=== PATIENT | female | born 1995 | race Two or more races ===

== ENCOUNTER 2020-04-10 13:35 | Emergency (ER) | payer SELFPAY ==
--- NOTE | ~2020-04-10 | XR_ITS ---
EXAMINATION: XR chest 2V DATE: 04/10/2020 14:35 INDICATION: Cough and wheezing TECHNIQUE: PA and lateral views of the chest are obtained. COMPARISON: None available FINDINGS: There is minimal airspace opacity of the left lower lobe. There is no pleural effusion or p neumothorax. The cardiomediastinal silhouette is normal. The visualized bones and soft tissues are un remarkable. IMPRESSION: 1. Minimal airspace opacity of the left lower lobe, likely pneumonia. Reviewed, dictated and finalized at location A. [facility]
[2020-04-10 13:57] VITALS: BP 134/75; PULSE 83; RESP 18; TEMP 36.9; O2SAT 97
--- NOTE | 2020-04-10 14:39 | ED.URI ---
HPI - URI/Sore Throat General Chief Complaint: Upper Respiratory Infection Stated Complaint: cough Source: patient and RN notes reviewed Mode of arrival: ambulatory History of Present Illness HPI Narrative: This is a 24-year-old -[place] female who presented today with complaints of chronic coughing and shortness of breath. According to patient she had tested for Covid March 22 which was negative at that time she had fever cough and shortness of breath. According to patient her fever did resolve but she continues to have a nonproductive cough with shortness of breath and wheezing. Patient noted that she did take [id number] Mucinex. She did not take anything else at home. The patient denies CP, palpitation, extremity numbness, lightheadedness, dizziness, constipation, diarrhea, chills, or fever. MD elicited complaint: cough Related Data Allergies Allergy/AdvReac Type Severity Reaction Status Date / Time No Known Allergies Allergy Verified 04/10/20 14:08 Review of Systems Review of Systems: All systems reviewed & are unremarkable except as noted in HPI and below Exam Narrative: Exam Narrative: GENERAL: This is a well-nourished, well-developed patient, in no apparent distress. HEAD: normocephalic, atraumatic. EYES: PERRL. Sclera clear/white. Vision is grossly intact. EARS: External ears normal, auditory canals clear and without drainage, TMs normal without perforation. Hearing grossly intact. NOSE: External nose normal with no obvious nasal discharge, nares without redness, no rhinorrhea. THROAT: Mucous membranes moist, posterior pharynx clear. NECK: Neck supple, non-tender without lymphadenopathy, masses or thyromegaly. CARDIOVASCULAR: Regular rate and rhythm without murmurs, gallops, or rubs. RESPIRATORY: Auditory wheezing GASTROINTESTINAL: Abdomen soft, non-tender, nondistended. Bowel sounds are active. No hepato-splenomegaly, or palpable masses. No guarding. SKIN: warm, intact with no suspicious lesions or rash, good texture and turgor. NEURO: awake, alert, and oriented to person, place and time. There were no obvious focal neurologic abnormalities. Steady gait EXTREMITIES: Normal range of motion. No edema. No calf tenderness. Negative Homans sign bilaterally. BACK: Nontender without deformity or crepitance. No flank tenderness. Course Vital Signs Vital signs: Vital Signs Temperature 98.4 F 04/10/20 13:57 Pulse Rate 83 04/10/20 13:57 Respiratory Rate 18 04/10/20 13:57 Blood Pressure 134/75 04/10/20 13:57 Pulse Oximetry 97 04/10/20 13:57 Temperature 98.4 F 04/10/20 13:57 Pulse Rate 83 04/10/20 13:57 Respiratory Rate 18 04/10/20 13:57 Blood Pressure 134/75 04/10/20 13:57 Pulse Oximetry 97 04/10/20 13:57 MDM - URI/Sore Throat Differential Diagnosis Differential diagnosis: Likely upper respiratory infection, viral infection and other (Pneumonia) Imaging Data Attestation: I personally reviewed and interpreted this imaging study as follows: My impression: Pneumonia Radiologist's impression: Likely pneumonia Discharge Plan Discharge Clinical Impression: Pneumonia Qualifiers: Pneumonia type: due to unspecified organism Laterality: unspecified laterality Lung location: unspecified part of lung Qualified Code(s): J18.9 - Pneumonia, unspecified organism Patient Disposition: Home, Self-Care Condition: Stable Instructions: Antibiotic Form Prescriptions: New albuterol sulfate 90 mcg/actuation aero powdr breath act w/sensor 1 inh inhalation Q4-6H PRN (Reason: shortness of breath) Qty: 1 RF: 1 budesonide-formoterol [Symbicort] 80-4.5 mcg/actuation HFA aerosol inhaler 2 puff inhalation Q12H Qty: 10.2 RF: 0 dexamethasone 6 mg tablet 6 mg PO DAILY 10 Days Qty: 10 RF: 0 benzonatate [Tessalon Perles] 100 mg capsule 100 mg PO BID 10 Days Qty: 20 RF: 0 guaifenesin 600 mg tablet extended release 12hr 600 mg PO Q12H Qty: 10 RF: 0 levoflox
[2020-04-10] MEDS: ALBUTEROL SULFATE NEB 2.5 MG/3 ML INH 1.25 MG INHALATION (14:55)
[2020-04-10] MEDS: IPRATROPIUM BR 0.02% INH SOLN 0.5 MG/2.5 ML VIAL INHALATION (14:57)
[2020-04-10] MEDS: predniSONE 20 MG TABLET 60 MG PO (15:23)
== END 2020-04-10 15:38 | disposition home or self-care (01) ==
PROVIDERS: Emergency Provider Nurse Practitioner
DX: J18.9 Pneumonia, unspecified organism (principal)
CPT/HCPCS: 71046; 99203; G0463; J7512